=== PATIENT | male | born 1985 | race Caucasian/White ===

== ENCOUNTER 2020-11-12 16:14 | Emergency (ER) | payer BC ==
[2020-11-12 16:42] VITALS: BP 138/92; PULSE 90; RESP 18; TEMP 97.8
--- NOTE | 2020-11-12 18:58 | ED ---
Male Urogenital HPI - General Chief complaint: Urogenital Stated complaint: Blood in urine Time Seen by Provider: 11/12/20 18:30 Source: patient Mode of arrival: ambulatory Limitations: no limitations - History of Present Illness Initial comments: Patient is a 35-year-old male presenting to emergency Department with complaints of blood in his urine that he noticed about 1 PM today. He does admit to some mild dysuria as well. He has had UTIs in the past. He also thinks he is having some mild achiness of his bilateral kidneys but is not sure if that is the case or if he's thinking too hard about it. He denies any discharge, no erythema or swelling. Denies any trauma to the area. He states he is sexually active but has no concerns whatsoever for STDs. He denies any fevers or chills, no nausea or vomiting no diarrhea. He states when he woke up this morning he did feel discomfort but did not think anything of it. He has no further complaints at this time. His vitals are stable. - Related Data Previous Rx's Medication Instructions Recorded Cephalexin [Keflex] 500 mg PO Q6HR 5 Days #20 cap 11/12/20 Allergies Allergy/AdvReac Type Severity Reaction Status Date / Time No Known Allergies Allergy Verified 11/12/20 19:51 Review of Systems ROS Statement: Those systems with pertinent positive or pertinent negative responses have been documented in the HPI. ROS Other: All systems not noted in ROS Statement are negative. Past Medical History Past Medical History: Asthma History of Any Multi-Drug Resistant Organisms: None Reported Past Surgical History: No Surgical Hx Reported Past Psychological History: No Psychological Hx Reported Smoking Status: Current every day smoker Past Alcohol Use History: Daily Past Drug Use History: None Reported General Exam - General Exam Comments Initial Comments: GENERAL: Patient is well-developed and well-nourished. Patient is nontoxic and in no a cute distress. HEAD: Atraumatic, normocephalic. EYES: Pupils equal round and reactive to light, extraocular movements intact, sclera anicteric, conjunctiva are normal. Eyelids were unremarkable. ENT: Moist mucous membranes. NECK: Normal range of motion, supple without lymphadenopathy or JVD. LUNGS: Unlabored respirations. Breath sounds clear to auscultation bilaterally and equal. No wheezes rales or rhonchi. HEART: Regular rate and rhythm without murmurs, rubs or gallops. ABDOMEN: Soft, nontender, normoactive bowel sounds. No guarding, no rebound. No masses appreciated. : Deferred MUSCULOSKELETAL: Normal extremities with adequate strength and normal range of motion, no pitting or edema. No clubbing or cyanosis. NEUROLOGICAL: Patient is alert and oriented x 3. SKIN: Warm, Dry, normal turgor, no rashes or lesions noted. Limitations: no limitations Course Vital Signs 11/12/20 16:40 Temperature 97.8 F Pulse Rate 90 Respiratory 18 Rate Blood Pressure 138/92 O2 Sat by Pulse 98 Oximetry Medical Decision Making - Medical Decision Making Patient is a 35-year-old male here for hematuria that started today at about 1 PM. He admits to some mild dysuria, no abdominal pain, vitals are stable. He is sexually active but no concerns for STDs whatsoever, does not want to be tested for them. Her and does show some WBCs and RBCs. Given patient's complaint, we'll start him on Keflex for possible UTI, urine culture is pending. He is agreeable to this. Return parameters were discussed with him and he verbalized understanding. - Lab Data Lab Results 11/12/20 Range/Units 19:16 Urine Color Yellow Urine Appearance Clear (Clear) Urine pH 5.5 (5.0-8.0) Ur Specific [place] 1.029 (1.001-1.035) Urine Protein Trace H (Negative) Urine Glucose (UA) Negative (Negative) Urine Ketones Negative (Negative) Urine Blood Small H (Negative) Urine Nitrite Negative (Negative) Urine Bilirubin Negative (Negative) Urine Urobilinogen <2.0 (<2.0) mg/dL Ur Leukocyte Esterase Small H (Negative) Urine RBC 12 H (0-5) /hpf Urine WBC 12 H (0-5) /hpf Ur Squamous Epith Cells 1 (0-4) /hpf Urine Mucus Occasional H (None) /hpf Disposition Clinical Impression: Hematuria, UTI (urinary tract infection) Disposition: HOME SELF-CARE Condition: Stable Instructions (If sedation given, give patient instructions): Urinary Tract Infection in Men (ED) Additional Instructions: Please return to the Emergency Department if symptoms worsen or any other concerns. Take antibiotics as prescribed. Increase your water intake. Follow-up with your family doctor. Prescriptions: Cephalexin [Keflex] 500 mg PO Q6HR 5 Days #20 cap Is patient prescribed a controlled substance at d/c from ED?: No Referrals: None,Stated [Primary Care Provider] - 1-2 days Time of Disposition: 20:55
[2020-11-12 20:23] LABS: Appearance,Urine Clear (Clear); Bilirubin,Urine Negative (Negative); Blood,Urine Small (Negative); Color,Urine Yellow; Glucose,Urine (UA) Negative (Negative); Ketones,Urine Negative (Negative); Leukocyte Esterase,Urine Small (Negative); Mucus,Urine Occasional /hpf; Nitrite,Urine Negative (Negative); PH, Urine 5.5 (5.0-8.0); Protein,Urine Trace (Negative); RBC,Urine 12 /hpf (0-5); Specific Gravity,Urine 1.029 (1.001-1.035); Squamous Epithelial Cell,Urine 1 /hpf (0-4); Urobilinogen,Urine <2.0 mg/dL (<2.0); WBC,Urine 12 /hpf (0-5)
[2020-11-12] MEDS ORDERED: CEPHALEXIN 500MG STARTER PACK 4 CAP BTL PO STA ×2 (20:54→21:06)
== END 2020-11-12 21:12 | disposition home or self-care (01) ==
LOC: EC 16:14
DX: N39.0 Urinary tract infection, site not specified (principal); J45.909 Unspecified asthma, uncomplicated; F17.200 Nicotine dependence, unspecified, uncomplicated
CPT/HCPCS: 81001; 87086; 99283